=== PATIENT | female | born 1970 | race American Indian/Alaskan Native ===

== ENCOUNTER 2020-11-18 22:44 | Emergency (ER) | payer MEDICAID ==
[2020-11-18 23:59] VITALS: BP 152/67
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
[2020-11-19 00:47] LABS: Basophils # (Auto) 0.1 K/mm3 (0.0-0.1); Basophils % (Auto) 0.5 % (0.0-1.8); Eosinophils # (Auto) 0.1 K/mm3 (0.0-0.4); Eosinophils % (Auto) 0.8 % (0.0-4.3); Hematocrit 39.2 % (30.3-42.9); Hemoglobin 13.7 gm/dl (10.1-14.3); Lymphocytes # (Auto) 1.3 K/mm3 (1.2-5.4); Lymphocytes % (Auto) 9.6 % (13.4-35.0); Mean Corpuscular HGB Conc 35 % (30-34); Mean Corpuscular Volume 102 fl (79-97); Monocytes % (Auto) 7.3 % (0.0-7.3); Platelet Count 254 K/mm3 (140-440); Red Blood Count 3.84 M/mm3 (3.65-5.03); Red Cell Distribution Width 13.2 % (13.2-15.2)
[2020-11-19 01:04] LABS: Alanine Aminotransferase 17 units/L (7-56); Albumin 4.2 g/dL (3.9-5); Blood Urea Nitrogen 13 mg/dL (7-17); Hemolysis Index 4
[2020-11-19 01:05] LABS: BUN/Creatinine Ratio 22
--- NOTE | 2020-11-19 01:59 | Cat Scan Report ---
CT ABDOMEN AND PELVIS WITH IV CONTRAST INDICATION: abd pain/left flank pain - hx HIV + pyelo. COMPARISON: None available. TECHNIQUE: All CT scans at this facility use dose modulation, automated exposure control, iterative reconstructi on or weight based dosing, when appropriate, to reduce radiation dose to as low as reasonably achieva ble. FINDINGS: Lung Bases: No significant abnormality. Skeletal System: No acute abnormality. ABDOMEN: Liver: No significant abnormality. Gallbladder: There is a punctate gallstone. Bile Ducts: No significant abnormality. Pancreas: No significant abnormality. Spleen: No significant abnormality. Adrenals: No significant abnormality. Right Kidney: No significant abnormality. Left Kidney: There is moderate left hydroureteronephrosis. Upper GI tract: No significant abnormality. Lymph Nodes: No significant adenopathy. Aorta: No significant abnormality. Additional Findings: No significant abnormality. PELVIS: Colon: No acute abnormality. Urinary Bladder and Distal Ureters: Bladder is unremarkable. There is a 4 mm distal left ureteral sto ne (axial image 145). Appendix: No significant abnormality. Lymph Nodes: No significant adenopathy. Additional Findings: There is a 2.4 cm right ovarian cyst with peripheral calcification (axial image 139). IMPRESSION: 1. 4 mm distal left ureteral stone with moderate left hydroureteronephrosis. 2. Incidental findings, as above. Signer Name: Ge Otoole MD Signed: 11/19/2020 1:55 AM Workstation Name: [id number]
== END 2020-11-19 05:02 | disposition left against medical advice (07) ==
LOC: ED 22:44
DX: R10.9 Unspecified abdominal pain (principal); B20 Human immunodeficiency virus [HIV] disease; F17.200 Nicotine dependence, unspecified, uncomplicated
CPT/HCPCS: 36415; 74177; 80053; 83690; 83735; 85025; 87076; 87086; 87186; 99283; Q9967

== ENCOUNTER 2020-11-19 11:13 | Emergency (ER) | payer MEDICAID ==
[2020-11-19 11:22] VITALS: BP 130/81
[2020-11-19] MEDS ORDERED: SODIUM CHLORIDE 0.9% 1000 ML 1,000 ML IV ONE ×2 (12:04→15:16)
[2020-11-19] MEDS ORDERED: KETOROLAC 30 MG/1 ML INJ IV ONE ×2 (12:04→15:17)
[2020-11-19 12:41] LABS: Basophils % (Auto) 0.3 % (0.0-1.8); Eosinophils % (Auto) 0.2 % (0.0-4.3); Hematocrit 39.2 % (30.3-42.9); Hemoglobin 13.5 gm/dl (10.1-14.3); Lymphocytes # (Auto) 0.9 K/mm3 (1.2-5.4); Lymphocytes % (Auto) 8.1 % (13.4-35.0); Mean Corpuscular HGB Conc 34 % (30-34); Mean Corpuscular Volume 103 fl (79-97); Monocytes # (Auto) 0.6 K/mm3 (0.0-0.8); Monocytes % (Auto) 5.9 % (0.0-7.3); Platelet Count 247 K/mm3 (140-440); Red Blood Count 3.81 M/mm3 (3.65-5.03); Red Cell Distribution Width 13.1 % (13.2-15.2)
[2020-11-19 13:02] LABS: Bilirubin,Urine NEG (Negative); Blood,Urine LG (Negative); Color,Urine Yellow (Yellow); Mucus,Urine 3+ /HPF; Urobilinogen,Urine < 2.0 mg/dL (<2.0)
[2020-11-19 13:04] LABS: Alanine Aminotransferase 15 units/L (7-56); Blood Urea Nitrogen 10 mg/dL (7-17); Calcium 9.3 mg/dL (8.4-10.2); Hemolysis Index 2
[2020-11-19] MEDS ORDERED: POTASSIUM CHLORIDE ER 20 MEQ TAB PO ONE ×2 (13:06→15:18)
[2020-11-19 13:28] LABS: BUN/Creatinine Ratio 20
[2020-11-19 13:33] LABS: WBC,Urine > 182.0 /HPF (0.0-6.0)
[2020-11-19] MEDS ORDERED: cefTRIAXone/NS 2 GM/100 ML 2 GM/100 ML BAG IV ONE (13:56)
--- NOTE | 2020-11-19 14:25 | Emergency Department Report ---
ED Abdominal Pain HPI - General Chief Complaint: Abdominal Pain Stated Complaint: KIDNEY, LOW BACK PAIN Time Seen by Provider: 11/19/20 12:00 Source: patient Mode of arrival: Ambulatory Limitations: No Limitations - History of Present Illness Initial Comments: This is a 50-year-old female nontoxic, well nourished in appearance, no acute signs of distress presents to the ED with c/o of nausea and left flank pain times several days. Patient also states has dysuria with associated symptoms. Patient denies any vomiting. Denies any radiation of pain. Patient denies chest pain, short of breath, fever, hemoptysis, blood in stool, chills, headache, stiff neck, numbness or tingling. Patient denies any diarrhea or constipation. Denies any blood in stool. Patient denies any recent travels. Patient denies any allergies. MD Complaint: flank pain -: days(s) Location: L flank Radiation: none Migration to: no migration Severity: mild Severity scale (0 -10): 8 Quality: cramping, aching Consistency: constant Improves With: nothing Worsens With: nothing Associated Symptoms: nausea, dysuria. denies: vomiting, diarrhea, fever, chills, constipation, hematemesis, hematochezia, melena, hematuria, anorexia, syncope - Related Data Previous Rx's Medication Instructions Recorded Last Taken Type Amoxicillin [Trimox CAP] 500 mg PO Q8H #30 capsule 12/12/13 Unknown Rx HYDROcodone/APAP 5-325 [[place] 1 each PO Q6HR PRN #15 tablet 12/12/13 Unknown Rx 5/325] Ciprofloxacin HCl 500 mg PO Q12H #14 tablet 11/19/20 Unknown Rx Naproxen 500 mg PO Q12H PRN #12 tablet 11/19/20 Unknown Rx Ondansetron [Zofran Odt] 4 mg PO Q8HR PRN #12 tab.rapdis 11/19/20 Unknown Rx Allergies Allergy/AdvReac Type Severity Reaction Status Date / Time No Known Allergies Allergy Unverified 08/29/13 10:30 ED Review of Systems ROS: Stated complaint: KIDNEY, LOW BACK PAIN Other details as noted in HPI Comment: All other systems reviewed and negative Constitutional: denies: chills, fever Eyes: denies: eye pain, eye discharge, vision change ENT: denies: ear pain, throat pain Respiratory: denies: cough, shortness of breath, wheezing Cardiovascular: denies: chest pain, palpitations Endocrine: no symptoms reported Gastrointestinal: denies: abdominal pain, nausea, diarrhea Genitourinary: dysuria. denies: urgency, frequency, hematuria, discharge, abnormal menses, dyspareunia Musculoskeletal: denies: back pain, joint swelling, arthralgia Skin: denies: rash, lesions Neurological: denies: headache, weakness, paresthesias Psychiatric: denies: anxiety, depression Hematological/Lymphatic: denies: easy bleeding, easy bruising ED Past Medical Hx - Past Medical History Previous Medical History?: Yes Hx HIV: Yes - Surgical History Past Surgical History?: No - Social History Smoking Status: Current Every Day Smoker Substance Use Type: None - Medications Home Medications: Home Medications Medication Instructions Recorded Confirmed Last Taken Type Amoxicillin [Trimox CAP] 500 mg PO Q8H #30 capsule 12/12/13 Unknown Rx HYDROcodone/APAP 5-325 [[place] 1 each PO Q6HR PRN #15 tablet 12/12/13 Unknown Rx 5/325] Ciprofloxacin HCl 500 mg PO Q12H #14 tablet 11/19/20 Unknown Rx Naproxen 500 mg PO Q12H PRN #12 tablet 11/19/20 Unknown Rx Ondansetron [Zofran Odt] 4 mg PO Q8HR PRN #12 tab.rapdis 11/19/20 Unknown Rx ED Physical Exam - General Limitations: No Limitations General appearance: alert, in no apparent distress - Head Head exam: Present: atraumatic, normocephalic - Eye Eye exam: Present: normal appearance - Neck Neck exam: Present: normal inspection, full ROM. Absent: tenderness, meningismus, lymphadenopathy - Respiratory Respiratory exam: Present: normal lung sounds bilaterally. Absent: respiratory distress, wheezes, rales, rhonchi, stridor, chest wall tenderness, accessory muscle use, decreased breath sounds, prolonged expiratory - Cardiovascular Cardiovascular Exam: Present: regular rate, normal rhythm, normal heart sounds. Absent: bradycardia, tachycardia, irregular rhythm, systolic murmur, diastolic murmur, rubs, gallop - GI/Abdominal GI/Abdominal exam: Present: soft, normal bowel sounds. Absent: distended, tenderness, guarding, rebound, rigid, diminished bowel sounds - Extremities Exam Extremities exam: Present: normal inspection, full ROM - Back Exam Back exam: Present: normal inspection, full ROM, CVA tenderness (L). Absent: tenderness, CVA tenderness (R), muscle spasm, paraspinal tenderness, vertebral tenderness, rash noted - Neurological Exam Neurological exam: Present: alert, oriented X3, normal gait - Psychiatric Psychiatric exam: Present: normal affect, normal mood - Skin Skin exam: Present: warm, dry, intact, normal color. Absent: rash ED Course Vital Signs 11/19/20 11:17 Temperature 98.3 F Pulse Rate 86 Respiratory 18 Rate Blood Pressure 130/81 O2 Sat by Pulse 98 Oximetry - Reevaluation(s) Reevaluation #1: 11/19/20 14:27 Patient is speaking in full sentences with no signs of distress noted. - Consultations Consultation #1: 11/19/20 14:27 Patient has been consulted with Gopal Flower about patient history, physical exam, and labs/imaging results and agrees to ED plan of care and discharge plan of care. ED Medical Decision Making - Lab Data Result diagrams: 11/19/20 12:25 11/19/20 12:25 Lab Results 11/19/20 11/19/20 11/19/20 Range/Units 12:17 12:25 12:25 WBC 11.0 (4.5-11.0) K/mm3 RBC 3.81 (3.65-5.03) M/mm3 Hgb 13.5 (10.1-14.3) gm/dl Hct 39.2 (30.3-42.9) % MCV 103 H (79-97) fl MCH 35 H (28-32) pg MCHC 34 (30-34) % RDW 13.1 L (13.2-15.2) % Plt Count 247 (140-440) K/mm3 Lymph % (Auto) 8.1 L (13.4-35.0) % Coffey % (Auto) 5.9 (0.0-7.3) % Eos % (Auto) 0.2 (0.0-4.3) % Baso % (Auto) 0.3 (0.0-1.8) % Lymph # (Auto) 0.9 L (1.2-5.4) K/mm3 Coffey # (Auto) 0.6 (0.0-0.8) K/mm3 Eos # (Auto) 0.0 (0.0-0.4) K/mm3 Baso # (Auto) 0.0 (0.0-0.1) K/mm3 Seg Neutrophils % 85.5 H (40.0-70.0) % Seg Neutrophils # 9.4 H (1.8-7.7) K/mm3 Sodium 141 (137-145) mmol/L Potassium 3.4 L (3.6-5.0) mmol/L Chloride 105.7 (98-107) mmol/L Carbon Dioxide 27 (22-30) mmol/L Anion Gap 12 mmol/L BUN 10 (7-17) mg/dL Creatinine 0.5 L (0.6-1.2) mg/dL Estimated GFR > 60 ml/min BUN/Creatinine Ratio 20 % Glucose 130 H (65-100) mg/dL Calcium 9.3 (8.4-10.2) mg/dL Total Bilirubin 0.30 (0.1-1.2) mg/dL AST 19 (5-40) units/L ALT 15 (7-56) units/L Alkaline Phosphatase 57 (35-129) units/L Total Protein 7.1 (6.3-8.2) g/dL Albumin 4.0 (3.9-5) g/dL Albumin/Globulin Ratio 1.3 % Lipase 25 (13-60) units/L Urine Color Yellow (Yellow) Urine Turbidity Turbid (Clear) Urine pH 5.0 (5.0-7.0) Ur Specific [place] 1.019 (1.003-1.030) Urine Protein 100 mg/dl (Negative) mg/dL Urine Glucose (UA) Neg (Negative) mg/dL Urine Ketones Neg (Negative) mg/dL Urine Blood Lg (Negative) Urine Nitrite Pos (Negative) Urine Bilirubin Neg (Negative) Urine Urobilinogen < 2.0 (<2.0) mg/dL Ur Leukocyte Esterase Lg (Negative) Urine WBC (Auto) > 182.0 H (0.0-6.0) /HPF Urine RBC (Auto) 133.0 (0.0-6.0) /HPF Urine WBC Clumps 3+ /HPF Urine Mucus 3+ /HPF - Radiology Data [facility] [address] [place] [address] Cat Scan Report Signed Patient: RAFAEL PARK MR#: [id number] : 1970 Acct:[id number] Age/Sex: 50 / F ADM Date: 11/18/20 Loc: ED Attending Dr: Ordering Physician: MAXIM MESSINA Date of Service: 11/19/20 Procedure(s): CT abdomen pelvis w con Accession Number(s): [id number] cc: MAXIM MESSINA CT ABDOMEN AND PELVIS WITH IV CONTRAST INDICATION: abd pain/left flank pain - hx HIV + pyelo. COMPARISON: None available. TECHNIQUE: All CT scans at this facility use dose modulation, automated exposure control, iterative reconstruction or weight based dosing, when appropriate, to reduce radiation dose to as low as reasonably achievable. FINDINGS: Lung Bases: No significant abnormality. Skeletal System: No acute abnormality. ABDOMEN: Liver: No significant abnormality. Gallbladder: There is a punctate gallstone. Bile Ducts: No significant abnormality. Pancreas: No significant abnormality. Spleen: No significant abnormality. Adrenals: No significant abnormality. Right Kidney: No significant abnormality. Left Kidney: There is moderate left hydroureteronephrosis. Upper GI tract: No significant abnormality. Lymph Nodes: No significant adenopathy. Aorta: No significant abnormality. Additional Findings: No significant abnormality. PELVIS: Colon: No acute abnormality. Urinary Bladder and Distal Ureters: Bladder is unremarkable. There is a 4 mm distal left ureteral stone (axial image 145). Appendix: No significant abnormality. Lymph Nodes: No significant adenopathy. Additional Findings: There is a 2.4 cm right ovarian cyst with peripheral calcification (axial image 139). IMPRESSION: 1. 4 mm distal left ureteral stone with moderate left hydroureteronephrosis. 2. Incidental findings, as above. Signer Name: Ge Otoole MD Signed: 11/19/2020 1:55 AM Workstation Name: [id number] Transcribed By: NATACHA Dictated By: Ge Otoole MD Electronically Authenticated By: Ge Otoole MD Signed Date/Time: 11/19/20154 DD/ 0 TD/TT: - Medical Decision Making 50-year-old female that presents with urinary stone with pyelonephritis. Patient is stable and was examined by me. Patient was consulted with attending which agrees to the ED plan of care and discharge instructions. Patient did receive initial dose of IV Rocephin antibiotics and patient is discharged with ciprofloxacin. Patient also received pain medication in the ER and pain stated is under control and subsided. A p.o. challenge has been obtained patient tolerated well. CT scan has been reviewed that was performed this morning prior to patient eloping. Patient is notified of the CT results and laboratory results with no questions noted by the patient. Vital signs are stable prior to discharge. No fever or tachycardia noted. Patient was instructed to follow-up with a primary care doctor in 3-5 days or if symptoms worsen and continue return to emergency room as soon as possible. At time of discharge, the patient does not seem toxic or ill in appearance. No acute signs of distress noted. Patient agrees to discharge treatment plan of care. No further questions noted by the patient. Critical care attestation.: If time is entered above; I have spent that time in minutes in the direct care of this critically ill patient, excluding procedure time. ED Disposition Clinical Impression: Renal calculi, Pyelonephritis of left kidney Disposition: HOME / SELF CARE / HOMELESS Is pt being admited?: No Does the pt Need Aspirin: No Condition: Stable Instructions: Abdominal Pain (ED), Pyelonephritis, Adult, Nico-xi-Cosl Additional Instructions: Follow-up with a urologist doctor in 2 days or if symptoms worsen and continue return to emergency room as soon as possible. Prescriptions: Ciprofloxacin HCl 500 mg PO Q12H #14 tablet Naproxen 500 mg PO Q12H PRN #12 tablet PRN Reason: Pain , Severe (7-10) Ondansetron [Zofran Odt] 4 mg PO Q8HR PRN #12 tab.rapdis PRN Reason: Nausea Referrals: CHACORTA RIVERO MD [Staff Physician] - 2-3 Days PRIMARY CARE, [Primary Care Provider] - 2-3 Days Forms: Work/School Release Form(ED) Time of Disposition: 14:31
== END 2020-11-19 16:58 | disposition home or self-care (01) ==
LOC: ED 11:13
DX: N20.0 Calculus of kidney (principal); N12 Tubulo-interstitial nephritis, not specified as acute or chronic
CPT/HCPCS: 36415; 80053; 81001; 83690; 85025; 96365; 96375; 99283; J0696; J1885; J7030; 74177; 83735; 87076; 87086; 87186; Q9967

== ENCOUNTER 2021-01-17 05:59 | Day surgery (SDC) | payer MEDICAID ==
[2021-01-17] MEDS ORDERED: ceFAZolin/Water 2 GM/20 ML 2 GM/20 ML SYRINGE IV ONE (06:38)
[2021-01-17] MEDS ORDERED: BACTERIOSTATIC SODIUM CHLORIDE 0.9% 30 ML VIAL INFILTRATI ONE (06:38)
[2021-01-17] MEDS ORDERED: LACTATED RINGERS 1,000 ML IV SCH (06:45)
[2021-01-17] MEDS ORDERED: ceFAZolin/Water 2 GM/20 ML 2 GM/20 ML SYRINGE IV NR (07:00)
--- NOTE | 2021-01-17 07:19 | Anesthesia Day of Surgery ---
Anesthesia Day of Surgery - Day of Surgery Patient Examined: Yes Patient H&P Reviewed: Yes Patient is NPO: Yes
--- NOTE | 2021-01-17 07:19 | Anesthesia Consultation ---
Anesthesia Consult and Med Hx Date of service: 01/17/21 - Airway Anesthetic Teeth Evaluation: Poor (some missing teeth) ROM Head & Neck: Adequate Mental/Hyoid Distance: Adequate Mallampati Class: Class II Intubation Access Assessment: Probably Good - Pre-Operative Health Status ASA Pre-Surgery Classification: ASA3 Proposed Anesthetic Plan: General - Pulmonary Hx Smoking: Yes (1/2 PPD X 6 YRS) Hx Sleep Apnea: No (SHALONDA PRE SCREEN HIGH RISK) - Cardiovascular System Hx Hypertension: Yes (X 1 YR) Hx Heart Murmur: Yes (CAUSES NO PROBLEMS) - Central Nervous System Hx Psychiatric Problems: Yes (bipolar/schizophrenia) - Endocrine Hx Renal Disease: Yes (kidney stones) - Hematic Hx Anemia: No - Other Systems Hx Cancer: Yes (cervical CA (2009), treatments yearly)
[2021-01-17] MEDS ORDERED: propofoL 200 MG/20 ML VIAL IV ONE (07:31)
[2021-01-17] MEDS ORDERED: HYDROmorphone 1 MG/1 ML INJ ONE (07:31)
[2021-01-17] MEDS ORDERED: LIDOCAINE MPF (2%) 20 MG/1 ML VIAL 5 ML ONE (07:33)
[2021-01-17] MEDS ORDERED: SCOPOLAMINE TRANSDERMAL PATCH 72 HR TD NR (08:00)
[2021-01-17] MEDS ORDERED: FAMOTIDINE 20 MG/2 ML INJ IV NR (08:00)
[2021-01-17] MEDS ORDERED: MIDAZOLAM 2 MG/2 ML INJ IV NR (08:00)
[2021-01-17] MEDS ORDERED: WATER FOR IRRIG STERILE 2000 ML IR ONE (08:16)
[2021-01-17] MEDS ORDERED: IOHEXOL 300 MG/ML 100ML IR ONE (08:19)
[2021-01-17] MEDS ORDERED: ONDANSETRON 4 MG/2 ML INJ IV PRN (09:00)
[2021-01-17] MEDS ORDERED: HYDROmorphone 1 MG/1 ML INJ IV PRN ×2 (09:00)
[2021-01-17] MEDS ORDERED: ONDANSETRON 4 MG/2 ML INJ ONE (09:03)
[2021-01-17] MEDS ORDERED: KETOROLAC 30 MG/1 ML INJ ONE (09:03)
[2021-01-17] MEDS ORDERED: dexAMETHasone 20 MG/5 ML VIAL ONE (09:03)
--- NOTE | 2021-01-17 09:14 | Short Stay Summary ---
Short Stay Documentation Date of service: 01/17/21 - History H&P: obtained from office - Allergies and Medications Current Medications: Allergies No Known Allergies Allergy (Verified 01/16/21 14:30) Home Medications Medication Instructions Recorded Confirmed Last Taken Type Bictegrav/Emtricit/Tenofov Ala 1 each PO DAILY 01/16/21 01/16/21 01/16/21 20:00 History [Biktarvy 50-200-25 mg Tablet] Cholecalciferol (Vitamin D3) 50,000 unit PO QWEEK 01/16/21 01/16/21 01/16/21 20:00 History [Vitamin D3 50,000UNIT CAP] Citalopram [celeXA] 10 mg PO QDAY 01/16/21 01/16/21 01/16/21 20:00 History Famotidine [Pepcid] 20 mg PO BID 01/16/21 01/16/21 01/16/21 20:00 History Lisinopril [Zestril] 5 mg PO DAILY 01/16/21 01/16/21 01/16/21 20:00 History gemfibroziL [Lopid] 600 mg PO BID 01/16/21 01/16/21 01/16/21 20:00 History Active Medications Famotidine (Famotidine 20 Mg/2 Ml Inj) 20 mg IV PREOP NR Stop: 01/17/21 21:00 Last Admin: 01/17/21 07:34 Dose: 20 mg Documented by: Hydromorphone HCl (Hydromorphone 1 Mg/1 Ml Inj) 0.25 mg IV Q10MIN PRN PRN Reason: Pain, Moderate (4-6) Stop: 01/17/21 18:00 Hydromorphone HCl (Hydromorphone 1 Mg/1 Ml Inj) 0.5 mg IV Q10MIN PRN PRN Reason: Pain , Severe (7-10) Stop: 01/17/21 18:00 Lactated Ringer's (Lactated Ringers) 1,000 mls @ 100 mls/hr IV DIRECT WILLI Last Admin: 01/17/21 07:04 Dose: 100 mls/hr Documented by: Cefazolin Sodium (Ancef/Sterile Water 2 Gm/20 Ml) 2 gm in 20 mls @ 80 mls/hr IV PREOP NR; Protocol Stop: 01/17/21 21:00 Midazolam HCl (Midazolam 2 Mg/2 Ml Inj) 2 mg IV PREOP NR Stop: 01/17/21 23:59 Last Admin: 01/17/21 07:32 Dose: 2 mg Documented by: Ondansetron HCl (Ondansetron 4 Mg/2 Ml Inj) 4 mg IV ONCE PRN PRN Reason: Nausea And Vomiting Stop: 01/17/21 17:00 Scopolamine (Scopolamine Transdermal Patch 72 Hr) 1 each TD PREOP NR Stop: 01/17/21 21:00 Last Admin: 01/17/21 07:29 Dose: 1 each Documented by: - Brief post op/procedure progress note Date of procedure: 01/17/21 Pre-op diagnosis: left ureteral stone Post-op diagnosis: same Procedure: cysto, rgp, left ureteroscopy basket stone, stent with external string Anesthesia: JER Surgeon: CHACORTA RIVERO Condition: stable - Hospital course Hospital course: bactrim,ultram, norco, post op info chart - Disposition Condition at discharge: Stable Disposition: 01 HOME / SELF CARE / HOMELESS Short Stay Discharge Plan Follow up with: GEORGIA KINGSLEY MD [Primary Care Provider] - 7 Days
--- NOTE | 2021-01-17 09:58 | Operative Report ---
DATE OF SURGERY: 01/17/2021 PREOPERATIVE DIAGNOSIS: Left distal ureteral stone. POSTOPERATIVE DIAGNOSIS: Left distal ureteral stone. PROCEDURES PERFORMED: Cystoscopy, bilateral retrograde pyelograms, left ureteroscopy, basket stone extraction, double-J stent placement, 6-[place] 24 cm with an external string. SURGEON: Stefan He MD ANESTHESIA: General. ESTIMATED BLOOD LOSS: Minimal. FLUIDS: Crystalloid. COMPLICATIONS: No complications. INDICATIONS: This 50-year-old female seen in the office with left flank pain. CT abdomen and pelvis revealed a 4 mm distal stone. She also has a right ovarian cyst. We followed her conservatively. She continued to have intermittent pain. We discussed options, risks, benefits, complications discussed. She agreed to proceed with surgical intervention. DESCRIPTION OF PROCEDURE: The patient was taken to the operative suite, placed in a supine position. After adequate general anesthesia, placed in the dorsal lithotomy position, prepped and draped in a sterile fashion. Pancystourethroscopy was performed with a 22-[place] Storz cystoscope. She did have some urethral stenosis, which was dilated to 26-[place]. No tumors or stones were noted. Bilateral retrograde pyelograms were obtained with an 8-[place] Commodore catheter and 8 mL of contrast. No filling defects or obstruction on the right. Left side, there is some narrowing of the distal ureter, two 0.035 Glidewires were placed. Left ureteroscopy was performed. A yellowish stone could be appreciated in the distal ureter, was engaged with a 3-[place] basket and extracted and will be sent for routine pathologic evaluation. Ureteroscopy up to the renal pelvis, no other stones could be appreciated. A 6-[place] 24 cm double-J stent with an external string was left indwelling and confirmed on x-ray. Bladder was drained. She was extubated and taken to recovery room. She will go home on Bactrim, Anthony, and Ultram. TID: [id number] RECEIPT: [id number] SERA/MARV
[2021-01-17 10:58] VITALS: BP 128/62
--- NOTE | 2021-01-17 15:26 | Fluoroscopy Report ---
FL retrograde urography INDICATION / CLINICAL INFORMATION: LT URETERAL STONE. COMPARISON: None available. FINDINGS: Right retrograde examination is unremarkable. Nonobstructing stone left ureter with adjacent ureteral inflammation. Successful double-J stent placement. Fluoroscopy time: 28 seconds. Fluoroscopic images: 6. Signer Name: Evan Guidry MD Signed: 01/17/2021 3:21 PM Workstation Name: [email or web address] DevelopmentSELECT [facility]OS[facility]ITAL - [email or web address]
--- NOTE | 2021-01-17 15:48 | Post Anesthesia Evaluation ---
- Post Anesthesia Evaluation Patient Participated: Yes Airway Patent: Yes Stable Respiratory Function: Yes Nausea/Vomiting: No Temp > 96.8F: Yes Pain Manageable: Yes Adequeate Hydration: Yes Anesthesia Complications: No Block Receding Appropriately: Not Applicable Patient on Ventilator: No
== END 2021-01-17 10:10 | disposition home or self-care (01) ==
LOC: OR 05:59
PROVIDERS: ATTEND Urology
DX: N20.1 Calculus of ureter (principal); I10 Essential (primary) hypertension; F31.9 Bipolar disorder, unspecified; F20.9 Schizophrenia, unspecified; F17.210 Nicotine dependence, cigarettes, uncomplicated; Z85.41 Personal history of malignant neoplasm of cervix uteri; Z79.899 Other long term (current) drug therapy; Z98.890 Other specified postprocedural states
CPT/HCPCS: 52332; 52352; 74420; A4217; C1758; C1769; C2617; J0690; J1100; J1170; J1885; J2250; J2405; J2704; J7120; Q9967

== ENCOUNTER 2021-01-30 22:14 | Emergency (ER) | payer MEDICAID ==
[2021-01-30 22:22] VITALS: BP 184/78
[2021-01-30] MEDS ORDERED: KETOROLAC 30 MG/1 ML INJ IV ONE (22:30)
[2021-01-30] MEDS ORDERED: MORPHINE 4 MG/1 ML INJ IV ONE (22:30)
[2021-01-30] MEDS ORDERED: ONDANSETRON 4 MG/2 ML INJ IV ONE (22:30)
[2021-01-30] MEDS ORDERED: HYDROcodone/ACETAMINOPHEN 5-325 MG TAB PO ONE (22:31)
--- NOTE | 2021-01-30 22:35 | Emergency Department Report ---
ED Female HPI - General Chief complaint: Abdominal Pain Stated complaint: ABDOMINAL PAIN Time Seen by Provider: 01/30/21 22:25 Source: patient Mode of arrival: Ambulatory Limitations: No Limitations - History of Present Illness Initial comments: Chief complaint: Severe abdominal pain HPI: This 50-year-old female with history of kidney stone, HIV, hypertension, migraine headache who presents with severe left flank pain radiating to the pelvis bladder region. Patient had a ureteral stent removed in the office of Dr. He urologist today at 3 PM without event or pain. She had sudden onset of pain 6 PM. She has severe left flank pain rating to the left lower quadrant down to the bladder urethra region. 10 out of 10. According to electronic medical record patient underwent cystoscopy ureteroscopy, ureteral stenting on 13 days ago on January 17 MD Complaint: other (Flank pain) -: Sudden, hour(s) (3 hours) Severity: severe Severity scale (0 -10): 10 Consistency: constant Improves with: none Worsens with: none Are you Now?: No Associated Symptoms: denies other symptoms - Related Data Home Medications Medication Instructions Recorded Confirmed Last Taken Bictegrav/Emtricit/Tenofov [place] 1 each PO DAILY 01/16/21 01/16/21 01/16/21 20:00 [Biktarvy 50-200-25 mg Tablet] Cholecalciferol (Vitamin D3) 50,000 unit PO QWEEK 01/16/21 01/16/21 01/16/21 20:00 [Vitamin D3 50,000UNIT CAP] Citalopram [celeXA] 10 mg PO QDAY 01/16/21 01/16/21 01/16/21 20:00 Famotidine [Pepcid] 20 mg PO BID 01/16/21 01/16/21 01/16/21 20:00 Lisinopril [Zestril] 5 mg PO DAILY 01/16/21 01/16/21 01/16/21 20:00 gemfibroziL [Lopid] 600 mg PO BID 01/16/21 01/16/21 01/16/21 20:00 Previous Rx's Medication Instructions Recorded Last Taken Type HYDROcodone/APAP 5-325 [[place] 1 each PO Q4HR PRN #15 tablet 01/31/21 Unknown Rx 5/325] Ibuprofen [Motrin 800 MG tab] 800 mg PO Q8HR PRN #15 tablet 01/31/21 Unknown Rx Allergies Allergy/AdvReac Type Severity Reaction Status Date / Time No Known Allergies Allergy Verified 01/16/21 14:30 ED Review of Systems ROS: Stated complaint: ABDOMINAL PAIN Other details as noted in HPI ED Past Medical Hx - Past Medical History Previous Medical History?: Yes Hx Hypertension: Yes (X 1 YR) Hx GERD: Yes (DAILY MEDS) Hx Renal Disease: Yes (kidney stones) Hx Headaches / Migraines: Yes (MIGRAINES) Hx Kidney Stones: Yes Hx HIV: Yes - Surgical History Past Surgical History?: Yes Additional Surgical History: Cystoscopy, ureteral stent - Social History Smoking Status: Current Every Day Smoker Substance Use Type: None - Medications Home Medications: Home Medications Medication Instructions Recorded Confirmed Last Taken Type Bictegrav/Emtricit/Tenofov [place] 1 each PO DAILY 01/16/21 01/16/21 01/16/21 20:00 History [Biktarvy 50-200-25 mg Tablet] Cholecalciferol (Vitamin D3) 50,000 unit PO QWEEK 01/16/21 01/16/21 01/16/21 20:00 History [Vitamin D3 50,000UNIT CAP] Citalopram [celeXA] 10 mg PO QDAY 01/16/21 01/16/21 01/16/21 20:00 History Famotidine [Pepcid] 20 mg PO BID 01/16/21 01/16/21 01/16/21 20:00 History Lisinopril [Zestril] 5 mg PO DAILY 01/16/21 01/16/21 01/16/21 20:00 History gemfibroziL [Lopid] 600 mg PO BID 01/16/21 01/16/21 01/16/21 20:00 History HYDROcodone/APAP 5-325 [[place] 1 each PO Q4HR PRN #15 tablet 01/31/21 Unknown Rx 5/325] Ibuprofen [Motrin 800 MG tab] 800 mg PO Q8HR PRN #15 tablet 01/31/21 Unknown Rx ED Physical Exam - General Limitations: No Limitations General appearance: alert, anxious, other (In severe pain) - Head Head exam: Present: atraumatic, normocephalic - Eye Eye exam: Present: normal appearance - ENT ENT exam: Present: mucous membranes moist - Neck Neck exam: Present: normal inspection, full ROM - Respiratory Respiratory exam: Present: normal lung sounds bilaterally. Absent: respiratory distress, wheezes, rales, rhonchi - Cardiovascular Cardiovascular Exam: Present: regular rate, normal rhythm, normal heart sounds. Absent: systolic murmur, diastolic murmur, rubs, gallop - GI/Abdominal GI/Abdominal exam: Present: soft, normal bowel sounds. Absent: distended, t enderness, guarding, rebound - Extremities Exam Extremities exam: Present: normal inspection - Neurological Exam Neurological exam: Present: alert, oriented X3 - Psychiatric Psychiatric exam: Present: anxious, other (Tearful in severe pain) - Skin Skin exam: Present: warm, dry, intact, normal color. Absent: rash ED Course Vital Signs 01/30/21 22:19 Temperature 98.0 F Pulse Rate 82 Respiratory 18 Rate Blood Pressure 184/78 O2 Sat by Pulse 99 Oximetry ED Medical Decision Making - Lab Data Result diagrams: 01/30/21 22:43 01/30/21 22:43 - Radiology Data Radiology results: report reviewed Patient Name: RAFAEL PARK Gender: Female Date of : 1970 Referring Provider: KRISHNA POOL Organization: [facility] Accession Number: [id number] Requested Date: January 30, 2021 23:26 Report Status: Final Requested Procedure: 1 Procedure Description: CT abdomen pelvis wo con Modality: CT Findings Reporting MD: Evan Guidry Dictation Time: January 30, 2021 23:00 Insole Toe Snipping Machine Operator: Not available Sisal Picker Date: CT ABDOMEN AND PELVIS WITHOUT CONTRAST INDICATION / CLINICAL INFORMATION: Severe LEFT flank pain, Status-post Ureteral Stent Removal. TECHNIQUE: Axial CT images were obtained through the abdomen and pelvis without IV contrast. All CT scans at this location are performed using CT dose reduction for ALARA by means of automated exposure control. COMPARISON: 11/19/2020 FINDINGS: LOWER CHEST: Mosaic attenuation at the lung bases. Mild left basilar atelectasis. LIVER: No significant abnormality. GALLBLADDER: Calcified gallstone. BILE DUCTS: No significant abnormality. PANCREAS: No significant abnormality. SPLEEN: No significant abnormality. ADRENALS: No significant abnormality. RIGHT KIDNEY / URETER: Few punctate nonobstructing stones. LEFT KIDNEY / URETER: 2 mm nonobstructing stone. Prominent dilatation of the left renal collecting system and ureter extending to the ureterovesical junction. No distal stone. Mild pyelosinus backflow. STOMACH / SMALL BOWEL: No significant abnormality. COLON: No significant abnormality. APPENDIX: No significant abnormality. PERITONEUM: No free fluid. No free air. No fluid collection. LYMPH NODES: No significant adenopathy. VASCULAR STRUCTURES: No significant abnormality. URINARY BLADDER: No abnormality. REPRODUCTIVE ORGANS: Right adnexal lesion measuring 2.8 cm with rim calcification (previously 2.4 cm). ADDITIONAL FINDINGS: None. SKELETAL SYSTEM: No significant abnormality. IMPRESSION: 1. High-grade obstruction left kidney with pyelosinus backflow. No obstructing distal ureteral stone. Findings may be due to blood clot or recently passed stone. 2. Nonobstructing calyceal stones. 3. Mild enlarging right ovarian cyst with peripheral calcification.. 4. Calcified gallstone. [facility] [address] [place] [address] P [phone] F [phone] [facility] - Report exported on Jan 30, 2021 23:09:09 -0600 - Page 2 of 2 Signer Name: Garyanthony Guidry M - Medical Decision Making Pain after ureteral stent removal. Considering patient had stone basket extraction, pain is common in this scenario. CBC chemistry within normal limits no evidence of sepsis CT abdomen pelvis revealed left-sided obstruction likely due to passed stone or possible blood clot in the system. Pain 3 out of 10 after treatment in the emergency department which included IV morphine, IV ketorolac p.o. [place]. Patient received IV Zofran. I have prescribed [place] and ibuprofen. Recommended follow- up with Dr. He this week. She understands return precautions specifically fever vomiting severe pain. Critical care attestation.: If time is entered above; I have spent that time in minutes in the direct care of this critically ill patient, excluding procedure time. ED Disposition Clinical Impression: History of removal of ureteral stent, Flank pain, acute Disposition: HOME / SELF CARE / HOMELESS Is pt being admited?: No Does the pt Need Aspirin: No Condition: Stable Instructions: Abdominal Pain (ED) Additional Instructions: Please follow-up with Dr. He this week. Please return to the emergency department for fever severe pain or vomiting. Prescriptions: Ibuprofen [Motrin 800 MG tab] 800 mg PO Q8HR PRN #15 tablet PRN Reason: Pain , Severe (7-10) HYDROcodone/APAP 5-325 [[place] 5/325] 1 each PO Q4HR PRN #15 tablet PRN Reason: Pain Referrals: CHACORTA HE MD [Staff Physician] - 2-3 Days
[2021-01-30 23:03] LABS: Basophils % (Auto) 0.5 % (0.0-1.8); Eosinophils % (Auto) 0.4 % (0.0-4.3); Hematocrit 40.9 % (30.3-42.9); Hemoglobin 13.2 gm/dl (10.1-14.3); Lymphocytes # (Auto) 1.6 K/mm3 (1.2-5.4); Lymphocytes % (Auto) 16.9 % (13.4-35.0); Mean Corpuscular HGB Conc 32 % (30-34); Mean Corpuscular Volume 102 fl (79-97); Monocytes # (Auto) 0.6 K/mm3 (0.0-0.8); Monocytes % (Auto) 6.3 % (0.0-7.3); Platelet Count 284 K/mm3 (140-440); Red Blood Count 4.03 M/mm3 (3.65-5.03); Red Cell Distribution Width 13.3 % (13.2-15.2)
[2021-01-30 23:35] LABS: Blood Urea Nitrogen 16 mg/dL (7-17); Hemolysis Index 11
[2021-01-30 23:47] LABS: BUN/Creatinine Ratio 27
--- NOTE | 2021-01-31 00:05 | Cat Scan Report ---
CT ABDOMEN AND PELVIS WITHOUT CONTRAST INDICATION / CLINICAL INFORMATION: Severe LEFT flank pain, Status-post Ureteral Stent Removal. TECHNIQUE: Axial CT images were obtained through the abdomen and pelvis without IV contrast. All CT scans at this location are performed using CT dose reduction for ALARA by means of automated exposure control. COMPARISON: 11/19/2020 FINDINGS: LOWER CHEST: Mosaic attenuation at the lung bases. Mild left basilar atelectasis. LIVER: No significant abnormality. GALLBLADDER: Calcified gallstone. BILE DUCTS: No significant abnormality. PANCREAS: No significant abnormality. SPLEEN: No significant abnormality. ADRENALS: No significant abnormality. RIGHT KIDNEY / URETER: Few punctate nonobstructing stones. LEFT KIDNEY / URETER: 2 mm nonobstructing stone. Prominent dilatation of the left renal collecting sy stem and ureter extending to the ureterovesical junction. No distal stone. Mild pyelosinus backflow. STOMACH / SMALL BOWEL: No significant abnormality. COLON: No significant abnormality. APPENDIX: No significant abnormality. PERITONEUM: No free fluid. No free air. No fluid collection. LYMPH NODES: No significant adenopathy. VASCULAR STRUCTURES: No significant abnormality. URINARY BLADDER: No abnormality. REPRODUCTIVE ORGANS: Right adnexal lesion measuring 2.8 cm with rim calcification (previously 2.4 cm) . ADDITIONAL FINDINGS: None. SKELETAL SYSTEM: No significant abnormality. IMPRESSION: 1. High-grade obstruction left kidney with pyelosinus backflow. No obstructing distal ureteral stone. Findings may be due to blood clot or recently passed stone. 2. Nonobstructing calyceal stones. 3. Mild enlarging right ovarian cyst with peripheral calcification.. 4. Calcified gallstone. Signer Name: Evan Guidry MD Signed: 01/31/2021 12:00 AM Workstation Name: [id number]
[2021-01-31] MEDS ORDERED: HYDROcodone/ACETAMINOPHEN 5-325 MG TAB PO ONE (00:23)
[2021-01-31] MEDS ORDERED: IBUPROFEN 800 MG TAB PO ONE (00:23)
[2021-01-31 01:41] LABS: Bacteria,Urine 1+ /HPF (Negative); Bilirubin,Urine NEG (Negative); Blood,Urine LG (Negative); Color,Urine Yellow (Yellow); Mucus,Urine FEW /HPF
== END 2021-01-31 02:45 | disposition home or self-care (01) ==
LOC: ED 22:14
DX: R10.32 Left lower quadrant pain (principal); I10 Essential (primary) hypertension; G43.909 Migraine, unspecified, not intractable, without status migrainosus; K21.9 Gastro-esophageal reflux disease without esophagitis; Z87.442 Personal history of urinary calculi; Z79.899 Other long term (current) drug therapy
CPT/HCPCS: 36415; 74176; 80048; 81001; 85025; 87086; 96374; 96375; 99284; J1885; J2270; J2405